=== PATIENT | female | born 1940 | race Caucasian/White ===

== ENCOUNTER 2020-03-23 02:22 | Day surgery (SDC) | payer OTHER | END 2020-03-23 23:21 | disposition home or self-care (01) | LOC: WOUND 02:22 | DX: I96 Gangrene, not elsewhere classified (principal); L97.811 Non-pressure chronic ulcer of other part of right lower leg limited to breakdown of skin; I87.2 Venous insufficiency (chronic) (peripheral); J44.9 Chronic obstructive pulmonary disease, unspecified; H26.9 Unspecified cataract; Z87.891 Personal history of nicotine dependence | CPT/HCPCS: G0463 ==

== ENCOUNTER 2020-03-30 01:32 | Day surgery (SDC) | payer OTHER | END 2020-03-30 23:00 | disposition home or self-care (01) | LOC: WOUND 01:32 | DX: L97.812 Non-pressure chronic ulcer of other part of right lower leg with fat layer exposed (principal); I87.2 Venous insufficiency (chronic) (peripheral) ==

== ENCOUNTER 2020-04-06 00:31 | Day surgery (SDC) | payer OTHER | END 2020-04-06 22:58 | disposition home or self-care (01) | LOC: WOUND 00:31 | DX: L97.812 Non-pressure chronic ulcer of other part of right lower leg with fat layer exposed (principal); I87.2 Venous insufficiency (chronic) (peripheral) ==

== ENCOUNTER 2020-04-13 00:18 | Day surgery (SDC) | payer OTHER | END 2020-04-13 23:08 | disposition home or self-care (01) | LOC: WOUND 00:18 | DX: I96 Gangrene, not elsewhere classified (principal); L97.812 Non-pressure chronic ulcer of other part of right lower leg with fat layer exposed; I87.2 Venous insufficiency (chronic) (peripheral); H26.9 Unspecified cataract; J44.9 Chronic obstructive pulmonary disease, unspecified ==

== ENCOUNTER 2020-04-20 00:20 | Day surgery (SDC) | payer OTHER | END 2020-04-20 23:53 | disposition home or self-care (01) | LOC: WOUND 00:20 | DX: L97.812 Non-pressure chronic ulcer of other part of right lower leg with fat layer exposed (principal); I87.2 Venous insufficiency (chronic) (peripheral); Z79.899 Other long term (current) drug therapy ==

== ENCOUNTER 2020-04-27 00:25 | Day surgery (SDC) | payer OTHER | END 2020-04-27 23:16 | disposition home or self-care (01) | LOC: WOUND 00:25 | DX: I96 Gangrene, not elsewhere classified (principal); L97.812 Non-pressure chronic ulcer of other part of right lower leg with fat layer exposed; H26.9 Unspecified cataract; J44.9 Chronic obstructive pulmonary disease, unspecified ==

== ENCOUNTER 2020-05-04 00:47 | Day surgery (SDC) | payer OTHER | END 2020-05-04 22:56 | disposition home or self-care (01) | LOC: WOUND 00:47 | DX: L97.812 Non-pressure chronic ulcer of other part of right lower leg with fat layer exposed (principal); I87.2 Venous insufficiency (chronic) (peripheral) | CPT/HCPCS: G0463 ==

== ENCOUNTER 2020-05-11 00:45 | Day surgery (SDC) | payer OTHER | END 2020-05-11 23:14 | disposition home or self-care (01) | LOC: WOUND 00:45 | DX: I96 Gangrene, not elsewhere classified (principal); L97.812 Non-pressure chronic ulcer of other part of right lower leg with fat layer exposed; M19.90 Unspecified osteoarthritis, unspecified site; J43.9 Emphysema, unspecified; H26.9 Unspecified cataract; Z99.81 Dependence on supplemental oxygen | CPT/HCPCS: A9270; G0463 ==

== ENCOUNTER 2020-05-18 00:28 | Day surgery (SDC) | payer OTHER | END 2020-05-18 23:02 | disposition home or self-care (01) | LOC: WOUND 00:28 | DX: L97.812 Non-pressure chronic ulcer of other part of right lower leg with fat layer exposed (principal); I73.9 Peripheral vascular disease, unspecified; J43.9 Emphysema, unspecified; Z99.81 Dependence on supplemental oxygen | CPT/HCPCS: A9270 ==

== ENCOUNTER 2020-05-25 00:35 | Day surgery (SDC) | payer OTHER | END 2020-05-25 22:49 | disposition home or self-care (01) | LOC: WOUND 00:35 | DX: L97.812 Non-pressure chronic ulcer of other part of right lower leg with fat layer exposed (principal); I73.9 Peripheral vascular disease, unspecified; M19.90 Unspecified osteoarthritis, unspecified site; J43.9 Emphysema, unspecified; Z99.81 Dependence on supplemental oxygen | CPT/HCPCS: A9270 ==

== ENCOUNTER 2020-06-01 00:42 | Day surgery (SDC) | payer OTHER | END 2020-06-01 23:45 | LOC: WOUND 00:42 | DX: L97.812 Non-pressure chronic ulcer of other part of right lower leg with fat layer exposed (principal); I73.9 Peripheral vascular disease, unspecified; J43.9 Emphysema, unspecified; M19.90 Unspecified osteoarthritis, unspecified site; Z99.81 Dependence on supplemental oxygen; Z79.02 Long term (current) use of antithrombotics/antiplatelets | CPT/HCPCS: A9270 ==

== ENCOUNTER 2020-06-08 00:38 | Day surgery (SDC) | payer OTHER | END 2020-06-08 23:40 | disposition home or self-care (01) | LOC: WOUND 00:38 | DX: L97.812 Non-pressure chronic ulcer of other part of right lower leg with fat layer exposed (principal); I73.9 Peripheral vascular disease, unspecified; M19.90 Unspecified osteoarthritis, unspecified site; J43.9 Emphysema, unspecified; Z99.81 Dependence on supplemental oxygen; Z79.02 Long term (current) use of antithrombotics/antiplatelets | CPT/HCPCS: A9270 ==

== ENCOUNTER 2020-06-15 00:32 | Day surgery (SDC) | payer OTHER | END 2020-06-15 23:59 | disposition home or self-care (01) | LOC: WOUND 00:32 | DX: L97.812 Non-pressure chronic ulcer of other part of right lower leg with fat layer exposed (principal); I73.9 Peripheral vascular disease, unspecified; J43.9 Emphysema, unspecified; Z99.81 Dependence on supplemental oxygen; Z79.02 Long term (current) use of antithrombotics/antiplatelets | CPT/HCPCS: A9270 ==

== ENCOUNTER 2020-06-22 00:49 | Day surgery (SDC) | payer OTHER | END 2020-06-22 22:58 | disposition home or self-care (01) | LOC: WOUND 00:49 | DX: L97.812 Non-pressure chronic ulcer of other part of right lower leg with fat layer exposed (principal); I73.9 Peripheral vascular disease, unspecified; J43.9 Emphysema, unspecified; Z99.81 Dependence on supplemental oxygen | CPT/HCPCS: A9270 ==

== ENCOUNTER 2020-06-29 01:03 | Day surgery (SDC) | payer OTHER | END 2020-06-29 22:58 | disposition home or self-care (01) | LOC: WOUND 01:03 | DX: L97.812 Non-pressure chronic ulcer of other part of right lower leg with fat layer exposed (principal); I73.9 Peripheral vascular disease, unspecified; J44.9 Chronic obstructive pulmonary disease, unspecified; Z99.81 Dependence on supplemental oxygen | CPT/HCPCS: A9270 ==

== ENCOUNTER 2020-07-06 01:22 | Day surgery (SDC) | payer OTHER | END 2020-07-06 23:11 | disposition home or self-care (01) | LOC: WOUND 01:22 | DX: L97.912 Non-pressure chronic ulcer of unspecified part of right lower leg with fat layer exposed (principal); I77.1 Stricture of artery; I73.9 Peripheral vascular disease, unspecified; M19.90 Unspecified osteoarthritis, unspecified site; J43.9 Emphysema, unspecified; Z99.81 Dependence on supplemental oxygen | CPT/HCPCS: A9270 ==

== ENCOUNTER 2020-07-13 00:09 | Day surgery (SDC) | payer OTHER | END 2020-07-13 23:07 | disposition home or self-care (01) | LOC: WOUND 00:09 | DX: L97.812 Non-pressure chronic ulcer of other part of right lower leg with fat layer exposed (principal); I73.9 Peripheral vascular disease, unspecified; J43.9 Emphysema, unspecified | CPT/HCPCS: A9270 ==

== ENCOUNTER 2020-07-20 00:44 | Day surgery (SDC) | payer OTHER | END 2020-07-20 23:02 | disposition home or self-care (01) | LOC: WOUND 00:44 | DX: L97.812 Non-pressure chronic ulcer of other part of right lower leg with fat layer exposed (principal); I73.9 Peripheral vascular disease, unspecified; J43.9 Emphysema, unspecified | CPT/HCPCS: A9270 ==

== ENCOUNTER 2020-07-27 02:26 | Day surgery (SDC) | payer OTHER | END 2020-07-27 23:42 | disposition home or self-care (01) | LOC: WOUND 02:26 | DX: L97.812 Non-pressure chronic ulcer of other part of right lower leg with fat layer exposed (principal); I73.9 Peripheral vascular disease, unspecified; J43.9 Emphysema, unspecified; M19.90 Unspecified osteoarthritis, unspecified site; I87.2 Venous insufficiency (chronic) (peripheral); Z98.890 Other specified postprocedural states | CPT/HCPCS: 93971; A9270 ==

== ENCOUNTER 2020-08-03 00:20 | Day surgery (SDC) | payer OTHER | END 2020-08-03 23:00 | disposition home or self-care (01) | LOC: WOUND 00:20 | DX: L97.812 Non-pressure chronic ulcer of other part of right lower leg with fat layer exposed (principal); I73.9 Peripheral vascular disease, unspecified; J43.9 Emphysema, unspecified; Z99.81 Dependence on supplemental oxygen | CPT/HCPCS: A9270 ==

== ENCOUNTER 2020-08-10 00:49 | Day surgery (SDC) | payer OTHER | END 2020-08-10 22:57 | disposition home or self-care (01) | LOC: WOUND 00:49 | DX: L97.812 Non-pressure chronic ulcer of other part of right lower leg with fat layer exposed (principal); I73.9 Peripheral vascular disease, unspecified; J43.9 Emphysema, unspecified | CPT/HCPCS: A9270 ==

== ENCOUNTER 2020-08-17 00:27 | Day surgery (SDC) | payer OTHER | END 2020-08-17 23:05 | disposition home or self-care (01) | LOC: WOUND 00:27 | DX: L97.812 Non-pressure chronic ulcer of other part of right lower leg with fat layer exposed (principal); I73.9 Peripheral vascular disease, unspecified; J43.9 Emphysema, unspecified; Z99.81 Dependence on supplemental oxygen | CPT/HCPCS: A9270 ==

== ENCOUNTER 2020-08-24 00:16 | Day surgery (SDC) | payer OTHER | END 2020-08-24 23:14 | disposition home or self-care (01) | LOC: WOUND 00:16 | DX: L97.812 Non-pressure chronic ulcer of other part of right lower leg with fat layer exposed (principal); I73.9 Peripheral vascular disease, unspecified; J43.9 Emphysema, unspecified; M19.90 Unspecified osteoarthritis, unspecified site | CPT/HCPCS: A9270; G0463 ==

== ENCOUNTER 2020-09-07 00:06 | Day surgery (SDC) | payer OTHER | END 2020-09-07 23:24 | disposition home or self-care (01) | LOC: WOUND 00:06 | DX: L97.812 Non-pressure chronic ulcer of other part of right lower leg with fat layer exposed (principal); I87.2 Venous insufficiency (chronic) (peripheral); I73.9 Peripheral vascular disease, unspecified; J44.9 Chronic obstructive pulmonary disease, unspecified; M19.90 Unspecified osteoarthritis, unspecified site; Z79.02 Long term (current) use of antithrombotics/antiplatelets | CPT/HCPCS: A9270 ==

== ENCOUNTER 2020-09-14 00:13 | Day surgery (SDC) | payer OTHER | END 2020-09-14 22:56 | disposition home or self-care (01) | LOC: WOUND 00:13 | DX: L97.812 Non-pressure chronic ulcer of other part of right lower leg with fat layer exposed (principal); I87.2 Venous insufficiency (chronic) (peripheral); I73.9 Peripheral vascular disease, unspecified; J43.9 Emphysema, unspecified | CPT/HCPCS: 87070; 87205; A9270 ==

== ENCOUNTER 2020-09-21 00:13 | Day surgery (SDC) | payer OTHER | END 2020-09-21 23:03 | disposition home or self-care (01) | LOC: WOUND 00:13 | DX: L97.812 Non-pressure chronic ulcer of other part of right lower leg with fat layer exposed (principal); I87.2 Venous insufficiency (chronic) (peripheral); I73.9 Peripheral vascular disease, unspecified; J43.9 Emphysema, unspecified; M19.90 Unspecified osteoarthritis, unspecified site; Z99.81 Dependence on supplemental oxygen | CPT/HCPCS: A9270; G0463 ==

== ENCOUNTER 2020-10-05 00:38 | Day surgery (SDC) | payer OTHER | END 2020-10-05 23:03 | disposition home or self-care (01) | LOC: WOUND 00:38 | DX: L97.812 Non-pressure chronic ulcer of other part of right lower leg with fat layer exposed (principal); J44.9 Chronic obstructive pulmonary disease, unspecified; I87.2 Venous insufficiency (chronic) (peripheral); I73.9 Peripheral vascular disease, unspecified | CPT/HCPCS: A9270 ==

== ENCOUNTER 2020-10-12 00:26 | Day surgery (SDC) | payer OTHER | END 2020-10-12 23:27 | disposition home or self-care (01) | LOC: WOUND 00:26 | DX: L97.812 Non-pressure chronic ulcer of other part of right lower leg with fat layer exposed (principal); I87.2 Venous insufficiency (chronic) (peripheral); I73.9 Peripheral vascular disease, unspecified; M19.90 Unspecified osteoarthritis, unspecified site; J43.9 Emphysema, unspecified; Z99.81 Dependence on supplemental oxygen | CPT/HCPCS: A9270 ==

== ENCOUNTER 2020-10-19 00:45 | Day surgery (SDC) | payer OTHER | END 2020-10-20 02:59 | disposition home or self-care (01) | LOC: WOUND 00:45 | DX: L97.812 Non-pressure chronic ulcer of other part of right lower leg with fat layer exposed (principal); I87.2 Venous insufficiency (chronic) (peripheral); I73.9 Peripheral vascular disease, unspecified | CPT/HCPCS: A9270 ==

== ENCOUNTER 2020-10-26 00:36 | Day surgery (SDC) | payer OTHER | END 2020-10-26 23:42 | disposition home or self-care (01) | LOC: WOUND 00:36 | DX: L97.812 Non-pressure chronic ulcer of other part of right lower leg with fat layer exposed (principal); I73.9 Peripheral vascular disease, unspecified; I87.2 Venous insufficiency (chronic) (peripheral); J43.9 Emphysema, unspecified; Z99.81 Dependence on supplemental oxygen | CPT/HCPCS: A9270; G0463 ==

== ENCOUNTER 2020-11-09 03:37 | Day surgery (SDC) | payer OTHER | END 2020-11-09 23:00 | disposition home or self-care (01) | LOC: WOUND 03:37 | DX: L97.812 Non-pressure chronic ulcer of other part of right lower leg with fat layer exposed (principal); I87.2 Venous insufficiency (chronic) (peripheral); I73.9 Peripheral vascular disease, unspecified; J43.9 Emphysema, unspecified | CPT/HCPCS: G0463 ==

== ENCOUNTER 2020-11-23 03:01 | Day surgery (SDC) | payer OTHER | END 2020-11-23 23:49 | disposition home or self-care (01) | LOC: WOUND 03:01 | DX: L97.812 Non-pressure chronic ulcer of other part of right lower leg with fat layer exposed (principal); I87.2 Venous insufficiency (chronic) (peripheral); I73.9 Peripheral vascular disease, unspecified; J43.9 Emphysema, unspecified; Z79.899 Other long term (current) drug therapy | CPT/HCPCS: A9270; G0463 ==

== ENCOUNTER 2020-12-07 00:12 | Day surgery (SDC) | payer OTHER | END 2020-12-07 23:17 | disposition home or self-care (01) | LOC: WOUND 00:12 | DX: L97.812 Non-pressure chronic ulcer of other part of right lower leg with fat layer exposed (principal); I73.9 Peripheral vascular disease, unspecified; I87.2 Venous insufficiency (chronic) (peripheral); J43.9 Emphysema, unspecified; Z99.81 Dependence on supplemental oxygen | CPT/HCPCS: A9270; G0463 ==

== ENCOUNTER 2020-12-21 02:22 | Day surgery (SDC) | payer OTHER | END 2020-12-21 23:51 | disposition home or self-care (01) | LOC: WOUND 02:22 | DX: L97.812 Non-pressure chronic ulcer of other part of right lower leg with fat layer exposed (principal); I73.9 Peripheral vascular disease, unspecified; I87.2 Venous insufficiency (chronic) (peripheral); J43.9 Emphysema, unspecified; Z99.81 Dependence on supplemental oxygen | CPT/HCPCS: A9270; G0463 ==

== ENCOUNTER 2021-01-11 00:49 | Day surgery (SDC) | payer OTHER | END 2021-01-11 23:44 | disposition home or self-care (01) | LOC: WOUND 00:49 | DX: Z09 Encounter for follow-up examination after completed treatment for conditions other than malignant neoplasm (principal); Z87.2 Personal history of diseases of the skin and subcutaneous tissue; J43.9 Emphysema, unspecified; M19.90 Unspecified osteoarthritis, unspecified site; I73.9 Peripheral vascular disease, unspecified; Z99.81 Dependence on supplemental oxygen | CPT/HCPCS: G0463 ==

== ENCOUNTER 2021-03-28 10:02 | Emergency (ER) | payer OTHER ==
[~2021-03-28] VITALS: Ht 165.1 cm; Wt 64.4 kg
[2021-03-28] MEDS ORDERED: Diethylpropion75 MG PO (11:25)
[2021-03-28] MEDS ORDERED: CLON.5 PO (11:25)
[2021-03-28] MEDS ORDERED: GABA300 PO (11:25)
[2021-03-28] MEDS ORDERED: Prednisone10 MG PO (11:26)
[2021-03-28] MEDS ORDERED: METO25ER PO (11:26)
[2021-03-28] MEDS ORDERED: MELO7.5 PO (11:26)
[2021-03-28] MEDS ORDERED: DULO30 PO (11:27)
[2021-03-28] MEDS ORDERED: CILO100 PO (11:27)
[2021-03-28] MEDS ORDERED: Aspir 8181 MG PO (11:27)
[2021-03-28] MEDS ORDERED: ESCI10 PO (11:27)
[2021-03-28] MEDS ORDERED: TRAM50 PO (11:28)
[2021-03-28] MEDS ORDERED: CYCL10 PO (11:28)
== END 2021-03-28 12:34 | disposition home or self-care (01) ==
LOC: ER 10:02
DX: M54.6 Pain in thoracic spine (principal); G89.29 Other chronic pain
CPT/HCPCS: 72070; 72100; 99283-25

== ENCOUNTER 2022-06-09 02:35 | Day surgery (SDC) | payer OTHER ==
[~2022-06-09 02:35] MED LIST: Aspir 8181 MG PO; CILO100 PO; CLON.5 PO; CYCL10 PO; DULO30 PO; Diethylpropion75 MG PO; ESCI10 PO; GABA300 PO; MELO7.5 PO; METO25ER PO; Prednisone10 MG PO; TRAM50 PO
== END 2022-06-09 23:03 | disposition home or self-care (01) ==
LOC: WOUND 02:35
DX: L89.892 Pressure ulcer of other site, stage 2 (principal); I70.213 Atherosclerosis of native arteries of extremities with intermittent claudication, bilateral legs; L97.509 Non-pressure chronic ulcer of other part of unspecified foot with unspecified severity; L84 Corns and callosities
CPT/HCPCS: A9270; G0463

== ENCOUNTER 2022-06-17 00:07 | Day surgery (SDC) | payer OTHER | END 2022-06-17 23:59 | disposition home or self-care (01) | LOC: WOUND 00:07 | DX: L97.512 Non-pressure chronic ulcer of other part of right foot with fat layer exposed (principal); L97.819 Non-pressure chronic ulcer of other part of right lower leg with unspecified severity; I70.213 Atherosclerosis of native arteries of extremities with intermittent claudication, bilateral legs; L84 Corns and callosities; J43.9 Emphysema, unspecified | CPT/HCPCS: A9270; G0463 ==

== ENCOUNTER 2022-06-30 01:36 | Day surgery (SDC) | payer OTHER | END 2022-06-30 22:49 | disposition home or self-care (01) | LOC: WOUND 01:36 | DX: L89.892 Pressure ulcer of other site, stage 2 (principal); I70.213 Atherosclerosis of native arteries of extremities with intermittent claudication, bilateral legs; L84 Corns and callosities | CPT/HCPCS: A9270; G0463 ==

== ENCOUNTER 2022-07-15 01:49 | Day surgery (SDC) | payer OTHER | END 2022-07-15 23:08 | disposition home or self-care (01) | LOC: WOUND 01:49 | DX: I70.213 Atherosclerosis of native arteries of extremities with intermittent claudication, bilateral legs (principal); L97.509 Non-pressure chronic ulcer of other part of unspecified foot with unspecified severity; L84 Corns and callosities | CPT/HCPCS: G0463 ==

== ENCOUNTER 2022-07-22 02:22 | Day surgery (SDC) | payer OTHER | END 2022-07-22 23:01 | disposition home or self-care (01) | LOC: WOUND 02:22 | DX: I70.213 Atherosclerosis of native arteries of extremities with intermittent claudication, bilateral legs (principal); L97.512 Non-pressure chronic ulcer of other part of right foot with fat layer exposed; L84 Corns and callosities; L89.892 Pressure ulcer of other site, stage 2 | CPT/HCPCS: A9270; G0463 ==

== ENCOUNTER 2022-08-05 02:09 | Day surgery (SDC) | payer OTHER | END 2022-08-05 22:51 | disposition home or self-care (01) | LOC: WOUND 02:09 | DX: L89.892 Pressure ulcer of other site, stage 2 (principal); I70.213 Atherosclerosis of native arteries of extremities with intermittent claudication, bilateral legs; L84 Corns and callosities | CPT/HCPCS: A9270; G0463 ==

== ENCOUNTER 2022-08-12 09:47 | Day surgery (SDC) | payer OTHER | END 2022-08-12 23:00 | disposition home or self-care (01) | LOC: WOUND 09:47 | DX: L97.519 Non-pressure chronic ulcer of other part of right foot with unspecified severity (principal); I70.213 Atherosclerosis of native arteries of extremities with intermittent claudication, bilateral legs; L84 Corns and callosities | CPT/HCPCS: 73660; G0463 ==

== ENCOUNTER 2022-08-26 03:27 | Day surgery (SDC) | payer OTHER | END 2022-08-26 22:44 | disposition home or self-care (01) | LOC: WOUND 03:27 | DX: L89.892 Pressure ulcer of other site, stage 2 (principal); I70.213 Atherosclerosis of native arteries of extremities with intermittent claudication, bilateral legs; L84 Corns and callosities; J43.9 Emphysema, unspecified | CPT/HCPCS: A9270; G0463 ==

== ENCOUNTER → 2022-08-29 | Outpatient (CLI) | payer OTHER | LOC: LAB SHORT 18:07 → LAB 18:07 | DX: L97.509 Non-pressure chronic ulcer of other part of unspecified foot with unspecified severity (principal) | CPT/HCPCS: 87070; 87075; 87205 ==

== ENCOUNTER 2022-09-02 01:49 | Day surgery (SDC) | payer OTHER | END 2022-09-02 23:01 | disposition home or self-care (01) | LOC: WOUND 01:49 | DX: I70.213 Atherosclerosis of native arteries of extremities with intermittent claudication, bilateral legs (principal); L97.509 Non-pressure chronic ulcer of other part of unspecified foot with unspecified severity; L84 Corns and callosities | CPT/HCPCS: G0463 ==

== ENCOUNTER 2022-09-16 01:04 | Day surgery (SDC) | payer OTHER | END 2022-09-18 22:45 | disposition home or self-care (01) | LOC: WOUND 01:04 | DX: L89.894 Pressure ulcer of other site, stage 4 (principal); I70.213 Atherosclerosis of native arteries of extremities with intermittent claudication, bilateral legs; L84 Corns and callosities; J43.9 Emphysema, unspecified | CPT/HCPCS: A9270; G0463 ==

== ENCOUNTER 2022-09-23 02:45 | Day surgery (SDC) | payer OTHER | END 2022-09-25 22:57 | disposition home or self-care (01) | LOC: WOUND 02:45 | DX: L89.894 Pressure ulcer of other site, stage 4 (principal); I70.213 Atherosclerosis of native arteries of extremities with intermittent claudication, bilateral legs; L84 Corns and callosities; M79.671 Pain in right foot; J43.9 Emphysema, unspecified | CPT/HCPCS: G0463 ==

== ENCOUNTER 2022-09-30 03:37 | Day surgery (SDC) | payer OTHER | END 2022-10-03 23:20 | disposition home or self-care (01) | LOC: WOUND 03:37 | DX: L89.894 Pressure ulcer of other site, stage 4 (principal); I70.213 Atherosclerosis of native arteries of extremities with intermittent claudication, bilateral legs; L97.509 Non-pressure chronic ulcer of other part of unspecified foot with unspecified severity; L84 Corns and callosities | CPT/HCPCS: A9270; G0463 ==

== ENCOUNTER 2022-10-07 03:23 | Day surgery (SDC) | payer OTHER | END 2022-10-07 23:00 | disposition home or self-care (01) | LOC: WOUND 03:23 | DX: I70.213 Atherosclerosis of native arteries of extremities with intermittent claudication, bilateral legs (principal); L97.509 Non-pressure chronic ulcer of other part of unspecified foot with unspecified severity; L84 Corns and callosities; J43.9 Emphysema, unspecified | CPT/HCPCS: G0463 ==

== ENCOUNTER → 2023-01-30 | Outpatient (CLI) | payer OTHER | LOC: LAB SHORT 10:34 → PLD 10:34 | DX: L82.1 Other seborrheic keratosis (principal) | CPT/HCPCS: 88305 ==